=== PATIENT | female | born 1990 | race Hispanic/Latino ===

== ENCOUNTER 2020-01-02 20:25 | Emergency (ER) | payer OTHER ==
[~2020-01-02] VITALS: Ht 162.6 cm; Wt 81.6 kg
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
--- OUTSIDE RECORDS SUMMARY | 2020-01-02 21:19 | XMS REPORT | Continuity of Care Document ---
Author Author [employer] Address Unknown Phone Unavailable Care Team Providers Care Outbound Sales Professional Name Role Phone [employer] Unavailable Un available Problems Problem Status Onset Date Classification Date Reported Comments Source CTXS Active 10/19/2019 [facility] Other specified related condit ions, third trimester 09/25/2019 09/27/2019 [facility] 35 WEEKS SHORTNESS OF BREATH Active 09/25/2019 [facility] related conditions, unspecifie d, unspecified trimester 08/31/2019 09/03/2019 [facility] 30 WKS /ABDOMINAL DISCOMFORT Active 08/31/2019 [facility] Dizziness and giddiness 05/25/2019 05/27/2019 [facility] 16 WKS PREG/DIZZY, NAUSEA Acti ve 05/25/2019 [facility] Patient currently (finding) Resolved 01/27/2019 Problem 10/24/2019 [facility] Chlamydial infection (disorder) Resolved 04/03/2008 Problem 10/24/2019 [facility] Dizziness (finding) Active Problem 10/24/2019 [facility] Anemia (disorder) Resolved Problem 10/24/2019 [facility] Dnfjf-mhu-ynurp fetus (disorder) Active Problem [facility] Medications Medication Details Route Status Patient Instructions Ordering Provider Order Date Source Acetaminophen 500 MG Oral Tablet 1,000 mg = 2 tab, PO, Q6H, PRN Pain, X 10 day, # 30 tab, 0 Refill(s), Pharmacy: [facility] #[id number], 157.48, cm, 10/19/19 11:43:00 CDT, Height, 94.091, kg, 10/19/19 11:43:00 CDT, Weight Active 10/22/2019 [facility] Docusate Sodium 100 MG Oral Capsule 100 mg = 1 cap, PO, BID, # 60 cap, 0 Refill(s), Pharmacy: [facility] #[id number], 157.48, cm, 10/19/19 11:43:00 CDT, Height, 94.091, kg, 10/19/19 11:43:00 CDT, Weight Active 10/22/2019 [facility] Ascorbic Acid 120 MG / Docusate Sodium 5 0 MG / Folic Acid 1 MG / Iron Carbonyl 90 MG / Vitamin B 12 0.012 MG Oral Tablet [Ferralet 90] 1 tab, PO, Daily, # 90 tab, 0 Refill(s), Pharmacy: [facility] #[id number], 157.48, cm, 10/19/19 11:43:00 CDT, Height, 94.091, kg, 10/19/19 11:43:00 CDT, Weight Active 10/22/2019 [facility] ibuprofen 600 mg oral tablet 6 00 mg = 1 tab, PO, Q6H, PRN Pain or Fever, Take with food, X 10 day, # 40 tab, 0 Refill(s), Pharmacy: [facility] #[id number], 157.48, cm, 10/19/19 11:43:00 CDT, Height, 94.091, kg, 10/19/19 11:43:00 CDT, Weight Active 10/22/2019 [facility] tramadol hydrochloride 50 MG Oral Tablet 50 mg = 1 tab, PO, Q6H, PRN Pain, X 10 day, # 10 tab, 0 Refill(s) Active 10/22/2019 [facility] nter Motrin Notes: (Same as: Motrin ) "Do Not Crush" Take with food. No Longer Active 10/21/2019 [facility] Multivitamins oral tablet 1 tab, Route: PO, Drug Form: TAB, Dosing Weight 94.091, kg, Daily, Start date: 10/21/19 9:00:00 CDT, Duration: 30 day, Stop date: 11/19/19 9:00:00 CDT, 0 No Longer Active 10/21/2019 [facility] Benadryl Notes: (Same as: Goldsmith dryl) Inactive 10/21/2019 [facility] Benadryl Notes: (Same as: Emma dryl) No Longer Active 10/21/2019 [facility] Ibuprofen Notes: (Same as: Mot rin) "Do Not Crush" Take with food. Active 10/20/2019 [facility] Naloxone Notes: Same as Narcan No Longer Active 10/20/2019 [facility] Oxycodone Hydrochloride 5 MG Oral Tablet Notes: (Same as: Roxicodone) No Longer Active 10/20/2019 [facility] nter Ondansetron Notes: (Same as: Iesha gaming) MEDICATION WASTE Product Size: 4 mg Product Wasted: ___ mg No Longer Active 10/20/2019 [facility] Naloxone Notes: Same as Narcan No Longer Active 10/20/2019 [facility] Meperidine Notes: (Same as: Desir) "Use Precaution in Elderly, Seizure disorders, and Renal impairment" Inactive 10/20/2019 [facility] nter Benadryl Notes: (Same as: Emma dryl) Inactive 10/20/2019 [facility] Acetaminophen Notes: Max aceta minophen 4000 mg/day (4 gm/day). (Same as: Tylenol Extra Strength) Active 10/20/2019 [facility] nter Citric Acid / sodium citrate N otes: (Same As: Bicitra, Cytra-2) Sodium citrate-citric acid (500-334 mg/5 mL): 1 mL contains sodium 1 mEq/mL and bicarbonate 1 mEq/mL No Longer Active 10/20/2019 [facility] nter M-M-R II Notes: (Same as: M-M- R II) (tzqijfg-xuzug-ffqbzjn virus vaccine 0.5 ml INJ VL) WASTE: F/P - Red; E -Red GIVE PRIOR TO DISCHARGE No Longer Active 10/20/2019 [facility] nter Ibuprofen Notes: (Same as: Mot rin) "Do Not Crush" Take with food. Inactive 10/20/2019 [facility] Tramadol Notes: Not to exceed 400mg/day. (Same As: Ultram) No Longer Active 10/20/2019 [facility] propofol (ANES) Route: IV, Mani g form: INJ, ONCE, Stop date: 10/20/19 15:29:00 CDT Inactive 10/20/2019 [facility] nter Oxytocin Notes: Hazardous Drug Group 3:Reproductive risk Hazardous Drug -- Refer to safe handling procedure PPE Matrix No Longer Active 10/20/2019 [facility] Lactated Ringers IV 1,000 mL 1 ,000 mL, Rate: 100 ml/hr, Infuse over: 10 hr, Route: IV, Dosing Weight 94.091 kg, Total Volume: 1,000, Start date: 10/20/19 15:29:00 CDT, Duration: 30 day, Stop date: 11/19/19 15:28:00 CDT, 2.06, m2, 0 No Longer Active 10/20/2019 [facility] nter Bisacodyl Notes: (Same As: Dul colax, Bisco-Lax) No Longer Active 10/20/2019 [facility] Docusate Notes: (Same as: Cola ce) (Do Not Crush) No Longer Active 10/20/2019 [facility] lanolin topical cream 1 appl, Route: TOP, PRN, Drug form: OINT, PRN Other -See Comment, Start date: 10/20/19 15:29:00 CDT, Duration: 30 day, Stop date: 11/19/19 15:28:00 CDT, 0 No Longer Active 10/20/2019 [facility] nter Benzocaine / Menthol Notes: Ce pacol lozenges Dispense 1 box = 16 lozenges (Same As: Cepacol Lozenges) No Longer Active 10/20/2019 [facility] Acetaminophen Notes: Do not ex ceed 4 gm/day. (Same as: Tylenol) No Longer Active 10/20/2019 [facility] Simethicone Notes: (Same as: Rick ylicon) No Longer Active 10/20/2019 [facility] zolpidem Notes: (Same As: Ambi en) No Longer Active 10/20/2019 [facility] Ondansetron Notes: (Same as: Iesha gaming) MEDICATION WASTE Product Size: 4 mg Product Wasted: ___ mg No Longer Active 10/20/2019 [facility] ketOROLAC (ANES) IV, ONCE Inactive 10/20/2019 [facility] nter acetaminophen (ANES) Route: IV , Drug form: INJ, ONCE, Stop date: 10/20/19 14:52:00 CDT Inactive 10/20/2019 [facility] nter lidocaine (ANES) Route: EPIDUR AL, Drug form: INJ, ONCE, Stop date: 10/20/19 14:37:00 CDT Inactive 10/20/2019 [facility] nter morphine Sulfate (ANES) Route: EPIDURAL, Drug form: INJ, ONCE, Stop date: 10/20/19 14:37:00 CDT Inactive 10/20/2019 [facility] nter ondansetron (ANES) Route: IV, Drug form: INJ, ONCE, Stop date: 10/20/19 14:37:00 CDT Inactive 10/20/2019 [facility] nter sodium bicarbonate (ANES) Rout e: EPIDURAL, Drug form: INJ, ONCE, Stop date: 10/20/19 14:31:00 CDT Inactive 10/20/2019 [facility] nter famotidine (ANES) Route: IV, D rug form: INJ, ONCE, Stop date: 10/20/19 14:31:00 CDT Inactive 10/20/2019 [facility] nter midazolam (ANES) Route: IV, Dr ug form: SOLN, ONCE, Stop date: 10/20/19 14:31:00 CDT Inactive 10/20/2019 [facility] nter ketAMINE (ANES) Route: IV, Mani g form: INJ, ONCE, Stop date: 10/20/19 14:31:00 CDT Inactive 10/20/2019 [facility] nter sodium citrate (ANES) Route: P O, Drug Form: INJ, ONCE, Stop date: 10/20/19 14:25:00 CDT Inactive 10/20/2019 [facility] nter ceFAZolin (ANES) Route: IV, Dr ug form: INJ, ONCE, Stop date: 10/20/19 14:25:00 CDT Inactive 10/20/2019 [facility] nter oxytocin (ANES) 30 unit Route: IV, Drug form: SOLN, Start date: 10/20/19 13:47:00 CDT, Stop date: 10/20/19 14:47:00 CDT Inactive 10/20/2019 [facility] azithromycin (ANES) 500 mg Rou te: IV, Drug form: INJ, Start date: 10/20/19 13:19:00 CDT, Stop date: 10/20/19 14:19:00 CDT Inactive 10/20/2019 [facility] phenylephrine (ANES) 100 microgram Route: IVP, Drug form: INJ, Start date: 10/20/19 13:19:00 CDT, Stop date: 10/20/19 14:19:00 CDT Inactive 10/20/2019 [facility] Lactated Ringers Injection IV (ANES) 1000 mL Route: IV, Total Volume: 1,000, Start date: 10/20/19 13:14:00 CDT, Stop date: 10/20/19 14:14:00 CDT Inactive 10/20/2019 [facility] Penicillin G Notes: (Same as: Pfizerpen) MEDICATION WASTE Product Size: 5,000,000 unit Product Wasted: ___ unit No Longer Active 10/19/2019 [facility] Famotidine Notes: (Same as: Pe pcid) Can be dilute in 5- 10cc NS IVP: Slow IV push over at least 2 minutes. No Longer Active 10/19/2019 [facility] Misoprostol Notes: (Same as:Cy totec) Hazardous Drug Group 3:Reproductive risk Hazardous Drug -- Refer to safe handling procedure PPE Matrix Take with food No Longer Active 10/19/2019 [facility] nter Methylergonovine Notes: (Same as:Methergine) Hazardous Drug Group 3:Reproductive risk Hazardous Drug -- Refer to safe handling procedure PPE Matrix No Longer Active 10/19/2019 [facility] nter Carboprost Notes: (Same As: He mabate) No Longer Active 10/19/2019 [facility] Tranexamic Acid Notes: (Same A s: Cyklokapron) No Longer Active 10/19/2019 [facility] Penicillin G Potassium 2320887 UNT/ML In jectable Solution 5,000,000 unit, Route: IVPB, ONCALL, Dos ing Weight 94.091, kg, Start date: 10/19/19 12:00:00 CDT, Duration: 30 day, Stop date: 11/18/19 11:59:00 CDT Inactive 10/19/2019 [facility] Lidocaine Hydrochloride 10 MG/ML Injectable Solution Notes: Preservative free. (Same as: Xylocaine MPF) No Longer Active 10/19/2019 [facility] Calcium Chloride 0.0014 MEQ/ML / Potassi um Chloride 0.004 MEQ/ML / Sodium Chloride 0.103 MEQ/ML / Sodium Lactate 0.028 MEQ/ML Injectable Solution 1,000 mL, 1,000 ml/hr, Infuse Over: 1 hr , Route: IV, ONCE, Dosing Weight 94.091 kg, Start date: 10/19/19 11:01:00 CDT, Stop date: 10/19/19 11:01:00 CDT, Bolus for regional anesthesia per unit routine Inactive 10/19/2019 [facility] Lactated Ringers IV 1,000 mL 1 ,000 mL, Rate: 125 ml/hr, Infuse over: 8 hr, Route: IV, Dosing Weight 94.091 kg, Total Volume: 1,000, Start date: 10/19/19 11:01:00 CDT, Duration: 30 day, Stop date: 11/18/19 11:00:00 CDT, 2.06, m2, 0 No Longer Active 10/19/2019 [facility] nter Oxytocin Notes: Hazardous Drug Group 3:Reproductive risk Hazardous Drug -- Refer to safe handling procedure PPE Matrix No Longer Active 10/19/2019 [facility] Butorphanol Notes: (Same As: Kelly tadol) MEDICATION WASTE Product Size: 2 mg Product Wasted: ___ mg No Longer Active 10/19/2019 [facility] Ibuprofen Notes: (Same as: Mot rin) "Do Not Crush" Take with food. No Longer Active 10/19/2019 [facility] Acetaminophen 325 MG / Hydrocodone Trevor trate 5 MG Oral Tablet Notes: (Same as: Pierre 325/5) Do not ex ceed 4gm/day of acetaminophen. No Longer Active 10/19/2019 [facility] Ondansetron Notes: (Same as: Iesha gaming) MEDICATION WASTE Product Size: 4 mg Product Wasted: ___ mg No Longer Active 10/19/2019 [facility] Terbutaline Notes: DO NOT US E IN POLISHER APPRENTICE AREA (Same As: Brethine) No Longer Active 10/19/2019 [facility] Isolyte S PH-7.4 (Bolus) IV 1, 000 mL, Route: IV, ONCE, Dosing Weight 82.273 kg, Start date: 05/25/19 17:02:00 DIRECT MARKETING SPECIALIST, Stop date: 05/25/19 17:02:00 DIRECT MARKETING SPECIALIST Inactive 05/25/2019 [facility] Allergies, Adverse Reactions, Alerts No Known Medication Allergies Immunizations No Data Provided for This Section Results Order Name Results Value Reference Range Date Interpretation Comments Source HEMATOLOGY WBC 12.4 3.7 - 10.4 10/22/2019 [facility] HEMATOLOGY RBC 3.38 4.20 - 5.40 10/22/2019 [facility] HEMATOLOGY Hgb 8.6 12.0 - 16.0 10/22/2019 [facility] HEMATOLOGY Hct 26.1 36.0 - 48.0 10/22/2019 [facility] HEMATOLOGY MCV 77.4 80.0 - 98.0 10/22/2019 [facility] HEMATOLOGY MCH 25.5 27.0 - 31.0 10/22/2019 [facility] HEMATOLOGY MCHC 32.9 32.0 - 36.0 10/22/2019 [facility] HEMATOLOGY RDW 19.1 11.5 - 14.5 10/22/2019 [facility] HEMATOLOGY Platelet 193 133 - 450 10/22/2019 [facility] HEMATOLOGY MPV 9.7 7.4 - 10.4 10/22/2019 [facility] HEMATOLOGY Segs 73.5 45.0 - 75.0 10/22/2019 [facility] HEMATOLOGY Lymphocytes 15.9 20.0 - 40.0 10/22/2019 [facility] HEMATOLOGY Monocytes 9.1 2.0 - 12.0 10/22/2019 [facility] HEMATOLOGY Eosinophils 1.2 0.0 - 4.0 10/22/2019 [facility] HEMATOLOGY Basophils 0.3 0.0 - 1.0 10/22/2019 [facility] HEMATOLOGY Neutrophils # 9.1 1.5 - 8.1 10/22/2019 [facility] HEMATOLOGY Lymphocytes # 2.0 1.0 - 5.5 10/22/2019 [facility] HEMATOLOGY Monocytes # 1.1 0.0 - 0.8 10/22/2019 [facility] HEMATOLOGY Eosinophils # 0.1 0.0 - 0.5 10/22/2019 [facility] HEMATOLOGY Microcyte 1+ *ABN* (10/21/19 9:51 PM) None Seen 10/22/2019 [facility] BLOOD BANK RESULTS RBC product Product available (10/21/19 7:06 AM) 10/21/2019 [facility] BLOOD BANK RESULTS RBC product Product available (10/21/19 7:03 AM) 10/21/2019 [facility] HEMATOLOGY Hgb 6.6 12.0 - 16.0 10/21/2019 Result Comment: Critical Result(s) ballesteros d to Clark Cárdenas at 10/21/2019 06:41 by ET. Read back OK. [facility] HEMATOLOGY Hct 20.8 36.0 - 48.0 10/21/2019 [facility] BLOOD BANK RESULTS ABO/Rh O POS 10/19/2019 [facility] BLOOD BANK RESULTS Antibody Scrn Negative (10/19/19 11:06 AM) 10/19/2019 [facility] HEMATOLOGY WBC 12.9 3.7 - 10.4 10/19/2019 [facility] HEMATOLOGY RBC 4.31 4.20 - 5.40 10/19/2019 [facility] HEMATOLOGY Hgb 10.3 12.0 - 16.0 10/19/2019 [facility] HEMATOLOGY Hct 31.9 36.0 - 48.0 10/19/2019 [facility] HEMATOLOGY MCV 74.0 80.0 - 98.0 10/19/2019 [facility] HEMATOLOGY MCH 23.8 27.0 - 31.0 10/19/2019 [facility] HEMATOLOGY MCHC 32.1 32.0 - 36.0 10/19/2019 [facility] HEMATOLOGY RDW 18.0 11.5 - 14.5 10/19/2019 [facility] HEMATOLOGY Platelet 224 133 - 450 10/19/2019 [facility] HEMATOLOGY MPV 10.5 7.4 - 10.4 10/19/2019 [facility] HEMATOLOGY Segs 67.7 45.0 - 75.0 10/19/2019 [facility] HEMATOLOGY Lymphocytes 20.9 20.0 - 40.0 10/19/2019 [facility] HEMATOLOGY Monocytes 10.6 2.0 - 12.0 10/19/2019 [facility] HEMATOLOGY Eosinophils 0.6 0.0 - 4.0 10/19/2019 [facility] HEMATOLOGY Basophils 0.2 0.0 - 1.0 10/19/2019 [facility] HEMATOLOGY Neutrophils # 8.7 1.5 - 8.1 10/19/2019 [facility] HEMATOLOGY Lymphocytes # 2.7 1.0 - 5.5 10/19/2019 [facility] HEMATOLOGY Monocytes # 1.4 0.0 - 0.8 10/19/2019 [facility] HEMATOLOGY Eosinophils # 0.1 0.0 - 0.5 10/19/2019 [facility] HEMATOLOGY Microcyte 1+ *ABN* (10/19/19 11:06 AM) None Seen 10/19/2019 [facility] IMMUNOLOGY Treponemal Ab Non-R eactive *NA* (10/19/19 11:06 AM) Non 10/19/2019 [facility] IMMUNOLOGY Hep Bs Ag Negat malissa *NA* (10/19/19 11:06 AM) Negative 10/19/2019 [facility] IMMUNOLOGY HIV. Negat malissa *NA* (10/19/19 11:06 AM) Negative 10/19/2019 [facility] IMMUNOLOGY Coronavirus (COVID-19) NA A Not Detected (10/19/19 10:08 AM) Not Detected 10/19/2019 [facility] CHEM PANEL Glucose Lvl 93 70 - 99 05/25/2019 [facility] CHEM PANEL BUN 6 7 - 22 05/25/2019 [facility] CHEM PANEL Creatinine Lvl 0.54 0.50 - 1.40 05/25/2019 [facility] CHEM PANEL Sodium Lvl 138 135 - 145 05/25/2019 [facility] CHEM PANEL Potassium Lvl 3.5 3.5 - 5.1 05/25/2019 [facility] CHEM PANEL Chloride Lvl 107 95 - 109 05/25/2019 [facility] CHEM PANEL CO2 24 24 - 32 05/25/2019 [facility] CHEM PANEL Calcium Lvl 9.0 8.5 - 10.5 05/25/2019 [facility] CHEM PANEL AGAP 10.5 10.0 - 20.0 05/25/2019 [facility] CHEM PANEL eGFR 128 05/25/2019 Result Comment: The eGFR is calculated using the CKD-EPI formula. In most young, healthy individuals the eGFR will be >90 mL/min/1.73m2. The eGFR declines with age. An eGFR of 60-89 may be normal in some populations, particularly the elderly, for whom the CKD-EPI formula has not been extensively validated. Use of the eGFR is not recommended in the following populations:

Individuals with unstable creatinine concentrations, including patients and those with serious co-morbid conditions.

Patients with extremes in muscle mass or diet.

The data above are obtained from the National Kidney Disease Education Program (NKDEP) which additionally recommends that when the eGFR is used in patients with extremes of body mass index for purposes of drug dosing, the eGFR should be multiplied by the estimated BMI. [facility] ENDOCRINOLOGY hCG Tot 8541 05/25/2019 [facility] HEMATOLOGY WBC X 10x3 10.8 3.7 - 10.4 05/25/2019 [facility] HEMATOLOGY RBC X 10x6 4.05 4.20 - 5.40 05/25/2019 [facility] HEMATOLOGY Hgb 11.3 12.0 - 16.0 05/25/2019 [facility] HEMATOLOGY Hct 34.4 36.0 - 48.0 05/25/2019 [facility] HEMATOLOGY MCV 84.8 80.0 - 98.0 05/25/2019 [facility] HEMATOLOGY MCH 27.8 27.0 - 31.0 05/25/2019 [facility] HEMATOLOGY MCHC 32.8 32.0 - 36.0 05/25/2019 [facility] HEMATOLOGY RDW 15.9 11.5 - 14.5 05/25/2019 [facility] HEMATOLOGY Platelet 306 133 - 450 05/25/2019 [facility] HEMATOLOGY MPV 8.6 7.4 - 10.4 05/25/2019 [facility] HEMATOLOGY Segs 64.2 45.0 - 75.0 05/25/2019 [facility] HEMATOLOGY Lymphocytes 21.0 20.0 - 40.0 05/25/2019 [facility] HEMATOLOGY Monocytes 12.8 2.0 - 12.0 05/25/2019 [facility] HEMATOLOGY Eosinophils 1.5 0.0 - 4.0 05/25/2019 [facility] HEMATOLOGY Basophils 0.5 0.0 - 1.0 05/25/2019 [facility] HEMATOLOGY Neutrophils # 6.9 1.5 - 8.1 05/25/2019 [facility] HEMATOLOGY Lymphocytes # 2.3 1.0 - 5.5 05/25/2019 [facility] HEMATOLOGY Monocytes # 1.4 0.0 - 0.8 05/25/2019 [facility] HEMATOLOGY Eosinophils # 0.2 0.0 - 0.5 05/25/2019 [facility] HEMATOLOGY Basophils # 0.1 0.0 - 0.2 05/25/2019 [facility] URINE AND STOOL UA Color Yellow *NA* (05/25/19 5:13 PM) Yellow 05/25/2019 [facility] URINE AND STOOL UA Turbidity Slight *ABN* (05/25/19 5:13 PM) Clear 05/25/2019 [facility] URINE AND STOOL UA Spec Grav 1.024 <=1.030 05/25/2019 [facility] URINE AND STOOL UA pH 6.0 5.0 - 8.0 05/25/2019 [facility] URINE AND STOOL UA Protein Negative (05/25/19 5:13 PM) Negative 05/25/2019 [facility] URINE AND STOOL UA Glucose Negative *NA* (05/25/19 5:13 PM) Negative 05/25/2019 [facility] URINE AND STOOL UA Ketones Trace *ABN* (05/25/19 5:13 PM) Negative 05/25/2019 [facility] URINE AND STOOL UA Bili Negative *NA* (05/25/19 5:13 PM) Negative 05/25/2019 [facility] URINE AND STOOL UA Blood Negative (05/25/19 5:13 PM) Negative 05/25/2019 [facility] URINE AND STOOL UA Urobilinogen <1.0 0.1 - 1.0 05/25/2019 [facility] URINE AND STOOL UA Nitrite Negative (05/25/19 5:13 PM) Negative 05/25/2019 [facility] URINE AND STOOL UA Leuk Est Negative (05/25/19 5:13 PM) Negative 05/25/2019 [facility] URINE AND STOOL UA Sq Epi Many /LPF Few /LPF 05/25/2019 [facility] URINE AND STOOL UA WBC 3 0 - 5 05/25/2019 [facility] URINE AND STOOL UA RBC 2 0 - 2 05/25/2019 [facility] URINE AND STOOL UA Bacteria Occasional /HPF None Seen /HPF 05/25/2019 [facility] URINE AND STOOL UA Mucus Few /LPF None Seen /LPF 05/25/2019 [facility] Pathology Reports No Data Provided for This Section Diagnostic Reports No Data Provided for This Section Consultation Notes No Data Provided for This Section Discharge Summaries No Data Provided for This Section History and Physicals No Data Provided for This Section Vital Signs Vital Sign Value Date Comments Source Temperature Oral (F) 98.2 F 10/22/2019 [facility] Heart Rate 85 10/22/2019 [facility] Respitory Rate 18 10/22/2019 [facility] Systolic (mm Hg) 102 10/22/2019 [facility] Diastolic (mm Hg) 67 10/22/2019 [facility] Temperature Oral (F) 98.5 F 10/22/2019 [facility] Heart Rate 80 10/22/2019 [facility] Respitory Rate 18 10/22/2019 [facility] Systolic (mm Hg) 120 10/22/2019 [facility] Diastolic (mm Hg) 74 10/22/2019 [facility] Temperature Oral (F) 97.9 F 10/21/2019 [facility] Respitory Rate 19 10/21/2019 [facility] Systolic (mm Hg) 100 10/21/2019 [facility] Diastolic (mm Hg) 67 10/21/2019 [facility] Heart Rate 79 10/21/2019 [facility] Temperature Oral (F) 98.4 F 10/21/2019 [facility] Heart Rate 93 10/21/2019 [facility] Respitory Rate 18 10/21/2019 [facility] Systolic (mm Hg) 94 10/21/2019 [facility] Diastolic (mm Hg) 57 10/21/2019 [facility] Systolic (mm Hg) 89 10/20/2019 [facility] Diastolic (mm Hg) 48 10/20/2019 [facility] Respitory Rate 18 10/20/2019 [facility] Systolic (mm Hg) 90 10/20/2019 [facility] Diastolic (mm Hg) 45 10/20/2019 [facility] Temperature Oral (F) 98.0 F 10/20/2019 [facility] Respitory Rate 16 10/20/2019 [facility] Temperature Oral (F) 98.4 F 10/20/2019 [facility] Height 157.48 cm 10/19/2019 [facility] Weight 94.091 10/19/2019 [facility] BMI Calculated 37.94 10/19/2019 [facility] Height 157.48 cm 10/19/2019 [facility] BMI Calculated 37.94 10/19/2019 [facility] Weight 94.091 10/19/2019 [facility] Heart Rate 109 10/19/2019 [facility] Systolic (mm Hg) 101 09/26/2019 [facility] Diastolic (mm Hg) 57 09/26/2019 [facility] Systolic (mm Hg) 114 09/26/2019 [facility] Diastolic (mm Hg) 68 09/26/2019 [facility] Height 162.56 cm 09/26/2019 [facility] BMI Calculated 34.4 09/26/2019 [facility] Weight 90.909 09/26/2019 [facility] Systolic (mm Hg) 114 09/26/2019 [facility] Diastolic (mm Hg) 68 09/26/2019 [facility] Heart Rate 102 09/26/2019 [facility] Respitory Rate 18 09/26/2019 [facility] Temperature Oral (F) 98.7 F 09/26/2019 [facility] Heart Rate 93 09/26/2019 [facility] Respitory Rate 16 09/26/2019 [facility] Temperature Oral (F) 98.3 F 09/26/2019 [facility] Systolic (mm Hg) 109 09/01/2019 [facility] Diastolic (mm Hg) 63 09/01/2019 [facility] Height 157.48 cm 09/01/2019 [facility] BMI Calculated 36.66 09/01/2019 [facility] Weight 90.909 09/01/2019 [facility] Systolic (mm Hg) 119 09/01/2019 [facility] Diastolic (mm Hg) 75 09/01/2019 [facility] Heart Rate 117 09/01/2019 [facility] Respitory Rate 18 09/01/2019 [facility] Temperature Oral (F) 97.1 F 09/01/2019 [facility] Systolic (mm Hg) 118 09/01/2019 [facility] Diastolic (mm Hg) 78 09/01/2019 [facility] Heart Rate 108 09/01/2019 [facility] Respitory Rate 20 09/01/2019 [facility] Temperature Oral (F) 98.4 F 09/01/2019 [facility] Heart Rate 86 05/26/2019 [facility] Systolic (mm Hg) 113 05/26/2019 [facility] Diastolic (mm Hg) 74 05/26/2019 [facility] Respitory Rate 18 05/26/2019 [facility] Heart Rate 93 05/26/2019 [facility] Systolic (mm Hg) 121 05/26/2019 [facility] Diastolic (mm Hg) 77 05/26/2019 [facility] Heart Rate 89 05/26/2019 [facility] Systolic (mm Hg) 104 05/26/2019 [facility] Diastolic (mm Hg) 69 05/26/2019 [facility] Respitory Rate 20 05/25/2019 [facility] Temperature Oral (F) 97.9 F 05/25/2019 [facility] Height 157.48 cm 05/25/2019 [facility] BMI Calculated 33.17 05/25/2019 [facility] Weight 82.273 05/25/2019 [facility] Encounters Location Location Details Encounter Type Encounter Number Reason For Visit Attending Provider ADM Date DC Date Status Source [facility] Emergency [id number] Elsa Wolfeo 05/25/2019 05/26/2019 [facility] Emergency [id number] Bridgett Delarosa 09/01/2019 09/01/2019 [facility] Emergency [id number] Tao Heredia 09/25/2019 09/26/2019 [facility] Inpatient [id number] Bridgett Washington 10/19/2019 10/22/2019 [facility] Procedures Procedure Code Date Perfomer Comments Source Dilation and curettage [id number] [facility] Assessment and Plan Assessment and Plan Date Source Extracted from:Title: R1 Progress Note Author: Claire Pederson MD Date: 10/22/19 Progress Note R1 Progress Note Subjective: Pt doing well with no complaints. Pain well controlled. Ambulating and voiding freely. Lochia wnl.Flatus + Objective: Vitals Tmp(F) Pulse BP RR SpO2 FIO2 10/21 00:00 98.5 80 120/74 1 8 99 --- 10/20 18:30 97.9 79 100/67 1 9 98 --- 07/20 17:15 98.1 70 101/70 1 8 96 --- 10/20 16:15 97.5 79 94/61 19 98 --- 10/20 15:15 97.5 84 99/66 18 99 --- 24 Hr Tmax: 98.5F (36.94c) at 10/21 00:0 0 Vital Signs are the last 5 in the past 48 hours. Gen: NAD Resp: Non-labored breathing Abd: soft/ fundus firm below umbilicus/ nontender/ nondistended Incision: c/d/i Peripad: scant lochia A/P: 28yo s/p pLTSCS and BTL on 10/20/19 2/2 arrest of dilation, doing well 1. POD#2 - AFVSS - Hgb 10.3 > QBL 1500 > 6.6> 2U pRBCs >8.6 - GI: tolerating regular diet - : voiding freely - Pain well controlled w/ PO meds 2. care - Rh+, RI - s/p tdap - Male infant, desires circumcision - BCM: s/p BTL 3. PPH - 2/2 atony - Hgb 10.3 > QBL 1500 > 6.6> 2U pRBCs >8 .6 - no s/sx of anemia Dispo: Continue Routine care. Anticipate dc today Claire Pederson MD [facility] [employer]ICE PGY1 Extracted from:Title: Clinical Document Author: Bridgett Delarosa MD Date: 10/19/19 History of Present Illness R2 [employer]ENTICE Labor Admission H&P ROSALIA: 11/03/19 EGA: 37w6d CC: contractions HPI:28 yo at 37w6d by LMP c/w 8wk sono with suspected macrosomia, obesity, who presents today complaining of 1 day history of contractions. Reports contractions q 5 minutes. Denies VB, LOF. Denies headaches, visual changes, RUQ pain. Denies chest pain, shortness of breath. Reports good FM. 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 Medications: (Selected) Inpatient Medications Ordered Lactated Ringers IV 1,000 mL: 125 ml/hr, IV, Stop: 11/18/19 11:00:00 CDT acetaminophen-hydrocodone 325 mg-5 mg oral tablet: 1 tab, PO, Q4H, PRN: Pain Score 4-6 acetaminophen-hydrocodone 325 mg-5 mg oral tablet: 2 tab, PO, Q4H, PRN: Pain Score 7-10 butorphanol: 1 mg, 0.5 mL, IVP, Q2H, PRN: Pain Score 4-6 butorphanol: 2 mg, 1 mL, IVP, Q2H, PRN: Pain Score 7-10 carboprost: 250 microgram, 1 mL, IM, ONCALL famotidine: 20 mg, 2 mL, IVP, ONCALL ibuprofen: 600 mg, 1 tab, PO, Q6H, PRN: Other -See Comment lidocaine 1% injectable solution: 0.25 mL, INTRADERM, PRN, PRN: Other -See Comment lidocaine 1%: 20 mL, PERCUT, PRN, PRN: Other -See Comment methylergonovine: 0.2 mg, 1 mL, IM, ONCALL misoprostol: 1,000 microgram, 5 tab, RI, ONCALL ondansetron: 4 mg, 2 mL, IVP, Q8H, PRN: Nausea and Vomiting oxytocin 30 units in NS 500ml (Titrate) IV 30 unit: Titrate, IV, Stop: 10/21/19 11:00:00 CDT oxytocin 30 units in NS 500ml (Titrate) IV 30 unit: Titrate, IV, Stop: 10/21/19 11:00:00 CDT penicillin G potassium + Sodium Chloride 0.9% IV 50 mL: 3 MilUnit, 100 ml/hr, IVPB, ABXQ4H terbutaline: 0.25 mg, 0.25 mL, SUB-Q, PRN, PRN: Other -See Comment tranexamic acid: 1 gm, 10 mL, IVPB, ONCALL. Past Medical/ Family/ Social History Medical history: Resolved ([id number]): Onset on 01/09/2013 at 22 years. Resolved in 2013 at 22 years. ([id number]): Onset on 04/24/2012 at 21 years. Resolved on 02/05/2013 at 22 years. ([id number]): Onset on 04/25/2009 at 18 years. Resolved on 02/07/2010 at 19 years. ([id number]): Onset on 11/24/2007 at 16 years. Resolved on 08/30/2008 at 17 years. Anemia ([id number]): Resolved. Chlamydia ([id number]): Resolved in 2008 at 18 years.. Surgical history: Dilation and curettage ([id number]).. Family history: Hypertension Mother Type 2 diabetes mellitus Father . Social history: Social and Psychosocial Habits Alcohol 08/31/2019 Use: Never 10/19/2019 Use: Never Substance Abuse 10/19/2019 Use: None Tobacco 09/25/2019 Use: Never smoker Exposure to Tobacco Smoke None Cigarette Smoking Last 365 Days No Reg Smoking Cessation Counseling No 10/19/2019 Use: Never smoker Ready to change: No Concerns about tobacco use in household: No Exposure to Tobacco Smoke None Cigarette Smoking Last 365 Days No Reg Smoking Cessation Counseling No 10/19/2019 Use: Never smoker Exposure to Tobacco Smoke None Cigarette Smoking Last 365 Days No Reg Smoking Cessation Counseling No . Problem list: Active Problems (3) Dizziness growth acceleration . Physical Examination Vital Signs ED-Vital Signs 10/19/2019 11:38 Respiratory Rate 18 BRMIN Normal SpO2 percent 99 % Normal Systolic Blood Pressure 101 mmHg Normal Diastolic Blood Pressure 66 mmHg Normal 10/19/2019 10:00 SpO2 percent 99 % Normal 10/19/2019 09:55 Temperature Oral 98.9 DegF Normal Peripheral Pulse Rate 109 bpm HI Respiratory Rate 20 BRMIN Normal SpO2 percent 99 % Normal Systolic Blood Pressure 118 mmHg Normal Diastolic Blood Pressure 80 mmHg Normal . Measurements 10/19/2019 11:43 Heparin Dosing Weight (kg) 67.70 10/19/2019 11:43 Height 157.48 cm Height Collection Method Stated Weight 94.091 kg Dosing Weight Difference Percent 0 % Dosing Weight Collection Method Estimated Pre- Weight 72.727 kg Body Surface Area 2.0288 m2 Body Mass Index 37.94 m2 10/19/2019 10:02 Heparin Dosing Weight (kg) 67.70 10/19/2019 09:55 Height 157.48 cm Height Collection Method Stated Weight 94.091 kg Dosing Weight Difference Percent 3.5 % Dosing Weight Collection Method Estimated Body Surface Area 2.0288 m2 Body Mass Index 37.94 m2 . Gen: NAD CV: RRR Pulm: CTAB Abdomen: soft/ gravid/ nontender Ext: no c/c/e SSE: deferred SVE: /-3 BSUS: cephalic, posterior, 4131g, MVP 5.2cm FHTs: baseline 150s, moderate variability, + accels, -decels [place]: q 2minutes Impression and Plan A/P: 28 yo at 37w6d by LMP c/w 9wk sono with suspected macrosomia, who presents today complaining of 1 day history of contractions, found to be in latent labor 1. Labor: SVE /-3, plan to augment w ith pitocin 2x2 2. IUP: FHTs Cat I 3. Suspected macrosomia - BSUS on 10/18 of 4131g - prior US on 10/06 of 3087g, 74%ile - early 1hr 81, routine 1hr 171, 3hr wnl (82/166/133/88) - 30lb weight gain this - counseled extensively on risk of shoul silva dystocia, including risk of injury to mother and fetus, nerve injury, hemorrhage, . 4. Obesity: BMI 38, see above 5. PPH risk: medium 6. Br/ wants epidural / BCM: BTL / accep ts blood transfusions 7. GBS unknown, will treat due to being GBS positive in prior pregnancies, 3THIV neg 8. Cephalic, 4134 g Dispo: admit to L&D for augmentation of latent labor D/w Dr. Mayes and Dr [place] Baum MD [employer]ER APPRENTICE | PGY-2 MFM Attending Note: I have seen and examined the patient. I agree with the note as documented. Bridgett Delarosa MD Maternal Medicine 10/22/2019 [facility] Extracted from:Title: Post-Op Author: Alba Yip DO Date: 10/20/19 Post Op Check R1 PostopCheck Subjective: Pt doing well with no complaints. Pain well controlled on PO meds. Buckley intact, pt has not ambulated. Whitney regular diet without N/V. neg Flatus, Lochia wnl. Objective: Vitals Tmp(F) Pulse BP RR SpO2 FIO2 10/19 17:46 ---- 88 89/48 18 96 --- 10/19 16:15 98.0 88 90/45 16 96 --- 10/19 15:45 ---- --- 88/49 - - --- --- 10/19 15:30 ---- --- 92/49 - - 98 --- 10/19 15:15 ---- 105 94/49 1 6 100 --- 24 Hr Tmax: 99.6F (37.56c) at 10/18 21:0 0 Vital Signs are the last 5 in the past 48 hours. Gen: NAD Resp: non-labored Abd: soft/non-tender/fundus firm at umbilicus/ pressuree dressing in place : lochia scant Ext: 1+ edema, SCDs in place Urine Output: 150cc/hr A/P: 28yo s/p pLTCS and BTL on 10/20/19 secondary to arrest of labor,and doing well. 1. POD#0 - AFVSS - Hgb 10.3 > QBL 1500 > AM pending - GI: tolerating clear liquid diet - : UOP adequate - DVT: SCDs and ambulate QID - Pain: controlled on PO medications 2. care - Rh+, RI - s/p tdap - Male infant - BCM: BTL Dispo: D/C buckley and advance to regular diet. Continue routine post op care. Alba Yip DO Resident Physician | PGY-1 Department of Obstetrics, Gynecology and Reproductive Sciences [facility] [place] 10/21/2019 [facility] Plan of Care No Data Provided for This Section Social History Social History Date Source Social History TypeResponse Alcohol Never Substance Abuse Use: None. Smoking Status Never smoker; Exposure to Tobacco Smoke None; Cigarette Smoking Last 365 Days No; Reg Smoking Cessation Counseling No entered on: 10/19/19 10/19/2019 [facility] Family History No Data Provided for This Section Advance Directives No Data Provided for This Section Functional Status No Data Provided for This Section
--- OUTSIDE RECORDS SUMMARY | 2020-01-02 21:19 | XMS REPORT | Continuity of Care Document ---
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 Test Item Value Reference Range Interpretation Comments UA pH (test code = UA pH) 6.0 1 5.0-8.0 [facility] XBJGT2210-28-35 23:13:00Negative (05/25/19 5:13 PM) [facility] NCPBP2348-41-69 23:13:00Negative *NA*(05/25/19 5:13 PM) [facility] MXFLA9958-50-61 23:13:00Trace *ABN*(05/25/19 5:13 PM) [facility] MHDVT9937-44-72 23:13:00Negative *NA*(05/25/19 5:13 PM) [facility] INXSS3953-65-98 23:13:00Negative (05/25/19 5:13 PM) [facility] IOROY6451-13-56 23:13:00<1.0[facility] JXVHE5054-42-53 23:13:00Negative (05/25/19 5:13 PM)[facility] LGHNH7580-94-15 23:13:00Negative (05/25/19 5:13 PM)[facility] XJXDZ8782-15-63 23:13:003[facility] LYAMT5860-69-91 23:13:002 [facility]- US PREG UT ECGBIDCKRVML5290-58-04 01:23:00 Name: JIMENEZ ROSENBAUM [facility] : 1990 Age/S: 28 / F [address] [facility] Unit #: [id number] Loc: [place] [address] Phys: Sheng Browning MD Acct: [id number] Di s Date: Status: REG ER PHONE #: Exam Date: 03/16/2019 0103 FAX #: [phone] Reason: abd pain EXAMS: CPT CODE: [id number] US PREG UT TR ANSVAGINAL 94750 LOCATION: Q15 HISTORY: 28-year-old female who is and presents with nausea, v omiting, and diarrhea. COMMENT: Sonographic imaging of this patient's pelvis was obtained transabdominally and endovaginally u tilizing grayscale, color-flow, and Doppler waveform imaging modalities. FINDINGS: The uterus is gravid and measures 14.4 x 4.4 x 8.6 cm. The gestational sac contains a yolk sac and pole. The cr own-rump length of 4 mm corresponds to a gestational age of 6 weeks 1 day. The gestational sac diameter of 2.1 cm corresponds to a gestational age of 7 weeks. heart tones are seen at 170 bpm. A small subchronic bleed is seen measuring 10 x 5 x 7 mm. The ovarie s are unremarkable. The right ovary measures 34 x 18 x 25 mm and the left ovary measures 30 x 21 x 25 mm Both ovaries exhibit low-resistance arterial blood flow and venous blood flow on the Doppler study. There are no adnexal masses present and no fluid is seen in the pelvic cul-de-sac. IMPRESSION: A live, 6 week 4 day intrauterine is seen. Estimated due date is November 05, 2019. A small subchronic bleed is seen. The ovaries are unremarkable. at 0123 Reported and signed by: Lino Carrillo M.D. PAGE 1 Signed Report (CONTINUED) Name: JIMENEZ ROSENBAUM [facility] : 1990 Age/S: 28 / F [address] [place] [address] Unit #: [id number] Loc: [place] [address] Phys: Kehinde Browning MD Acct: [id number] Dis Date: Status: REG ER PHONE #: [phone] Exam Date: 03/16/2019102 FAX #: [phone] Reason: abd pain EXAMS: CPT CODE: [id number] US PREG UT TRANSVAGINAL 98905 <Continued> CC: Kehinde Browning MD Technologist: Jimena Mederos [facility] Date/Time: 03/16/2019 (012) [email or web address] Orig Print D/T: S: 03/16/2019 (0126) Probe: [id number] PAGE 2 Signed Report - US PREG 1ST [id number] 01:23:00 Name: JIMENEZ ROSENBAUM [facility] : 1990 Age/S: 28 / F [address] [facility] Unit #: [id number] Loc: [place] [address] Phys: Sheng Browning MD Acct: [id number] Di s Date: Status: REG ER PHONE #: Exam Date: 03/16/2019102 FAX #: Reason: abd pain EXAMS: CPT CODE: [id number] US PREG 1ST T RIMTR 82884 LOCATION: Q15 HISTORY: 28-year-old female who is and presents with nausea, v omiting, and diarrhea. COMMENT: Sonographic imaging of this patient's pelvis was obtained transabdominally and endovaginally u tilizing grayscale, color-flow, and Doppler waveform imaging modalities. FINDINGS: The uterus is gravid and measures 14.4 x 4.4 x 8.6 cm. The gestational sac contains a yolk sac and pole. The cr own-rump length of 4 mm corresponds to a gestational age of 6 weeks 1 day. The gestational sac diameter of 2.1 cm corresponds to a gestational age of 7 weeks. heart tones are seen at 170 bpm. A small subchronic bleed is seen measuring 10 x 5 x 7 mm. The ovarie s are unremarkable. The right ovary measures 34 x 18 x 25 mm and the left ovary measures 30 x 21 x 25 mm Both ovaries exhibit low-resistance arterial blood flow and venous blood flow on the Doppler study. There are no adnexal masses present and no fluid is seen in the pelvic cul-de-sac. IMPRESSION: A live, 6 week 4 day intrauterine is seen. Estimated due date is November 05, 2019. A small subchronic bleed is seen. The ovaries are unremarkable. at 0123 Reported and signed by: Lino Carrillo M.D. PAGE 1 Signed Report (CONTINUED) Name: JIMENEZ ROSENBAUM [facility] : 1990 Age/S: 28 / F [address] [facility] Unit #: [id number] Loc: [facility] [place] [address] Phys: Kehinde Browning MD Acct: [id number] Dis Date: Status: REG ER PHONE #: [phone] Exam Date: 03/16/2019 0103 FAX #: [phone] Reason: abd pain EXAMS: CPT CODE: [id number] US PREG 1ST TRIMTR 85644 <Continued> CC: Kehinde Browning MD Technologist: Jimena Mederos [facility] Trnsc[facility] Date/Time: 03/16/2019 (012) [email or web address] Orig Print D/T: S: 03/16/2019 (012) Probe: PAGE 2 Signed Report URINALYSIS [id number] 23:31:00* Test Item Value Reference Range Interpretation Comments UA COLOR (test code = COLU) YELLOW YELLOW UA APPEARANCE (test code = APPU) CLEAR CLEAR UA GLUCOSE DIPSTICK (test code = DGLUU) norm mg/dL NEGATIVE UA BILIRUBIN DIPSTICK (test code = BILU) NEGATIVE mg/dL NEGATIVE UA KETONE DIPSTICK (test code = KETU) 150 (4+) mg/dL NEGATIVE A UA SPECIFIC GRAVITY (test code = SGU) 1.020 1.001-1.035 UA BLOOD DIPSTICK (test code = SHAWNA) 10 (Trace) Rajesh/uL NEGATIVE A UA PH DIPSTICK (test code = MALCOLM) 6.0 5.0-8.0 UA PROTEIN DIPSTICK (test code = PROU) 15 (TRACE) mg/dL Neg-15 A UA UROBILINIOGEN DIPSTICK (test code = URO) norm mg/dL 0.0-0.2 UA NITRITE DIPSTICK (test code = PETER) NEGATIVE NEGATIVE UA LEUKOCYTE ESTERASE DIPSTICK (test code = LEUU) neg uL NEGA TIVE UA WBC (test code = WBCU) 0-5 per HPF 0-5 UA RBC (test code = RBCU) 0-2 per HPF 0-5 UA EPITHELIAL CELLS (test code = EPIU) Many (>10/hpf) per HPF Few A UA BACTERIA (test code = BACU) MODERATE per HPF NONE A Urine Source? Clean CatchURINALYSIS [id number] 23:28:00* Test Item Value Reference Range Interpretation Comments UA COLOR (test code = COLU) YELLOW YELLOW UA APPEARANCE (test code = APPU) CLEAR CLEAR UA GLUCOSE DIPSTICK (test code = DGLUU) norm mg/dL NEGATIVE UA BILIRUBIN DIPSTICK (test code = BILU) NEGATIVE mg/dL NEGATIVE UA KETONE DIPSTICK (test code = KETU) 150 (4+) mg/dL NEGATIVE A UA SPECIFIC GRAVITY (test code = SGU) 1.020 1.001-1.035 UA BLOOD DIPSTICK (test code = SHAWNA) 10 (Trace) Rajesh/uL NEGATIVE A UA PH DIPSTICK (test code = MALCOLM) 6.0 5.0-8.0 UA PROTEIN DIPSTICK (test code = PROU) 15 (TRACE) mg/dL Neg-15 A UA UROBILINIOGEN DIPSTICK (test code = URO) norm mg/dL 0.0-0.2 UA NITRITE DIPSTICK (test code = PETER) NEGATIVE NEGATIVE UA LEUKOCYTE ESTERASE DIPSTICK (test code = LEUU) neg uL NEGA TIVE UA WBC (test code = WBCU) per HPF 0-5 UA RBC (test code = RBCU) per HPF 0-5 UA EPITHELIAL CELLS (test code = EPIU) per HPF Few UA BACTERIA (test code = BACU) per HPF NONE Urine Source? Clean CatchURINALYSIS [id number] 01:27:00* Test Item Value Reference Range Interpretation Comments UA COLOR (test code = COLU) COLORLESS YELLOW A UA APPEARANCE (test code = APPU) CLEAR CLEAR UA GLUCOSE DIPSTICK (test code = DGLUU) NEGATIVE mg/dL NEGATIVE UA BILIRUBIN DIPSTICK (test code = BILU) NEGATIVE mg/dL NEGATIVE UA KETONE DIPSTICK (test code = KETU) 10 (1+) mg/dL NEGATIVE A UA SPECIFIC GRAVITY (test code = SGU) 1.008 1.001-1.035 UA BLOOD DIPSTICK (test code = SHAWNA) Negative mg/dL NEGATIVE UA PH DIPSTICK (test code = MALCOLM) 7.0 5.0-8.0 UA PROTEIN DIPSTICK (test code = PROU) NEGATIVE mg/dL NEGATIVE UA UROBILINIOGEN DIPSTICK (test code = URO) Normal mg/dL NEGATIVE UA NITRITE DIPSTICK (test code = PETER) NEGATIVE NEGATIVE UA LEUKOCYTE ESTERASE W REFLEX (test code = LEUUR) NEGATIVE Justin/uL NEGATIVE UA WBC (test code = WBCU) 0-5 per HPF 0-5 UA RBC (test code = RBCU) 0-2 #/HPF 0-5 UA EPITHELIAL CELLS (test code = EPIU) FEW per HPF FEW UA BACTERIA (test code = BACU) FEW #/HPF NONE A UA MUCUS (test code = MUCU) FEW #/LPF FEW Urine Source? Clean Catch- US PREG 1ST [id number] 00:34:00 Name: ILSAJIMENEZ [facility] : 1990 Age/S: 28 / F [address] Unit #: [id number] Loc: [place] [address] Phys: Aarti Aguilera NP Acct: [id number] Di s Date: Status: REG ER PHONE #: [phone] Exam Date: 03/08/2019 0010 FAX #: Reason: VAGINAL BLEEDING/PELVIC PAIN EXAMS: CPT CODE: [id number] US PREG 1ST T RIMTR 30391 ULTRASOUND 1ST TRIMESTER DUPLEX PELVIS LIMITED ULTRASOUND TRANSVAGINAL Dictation Location: N13 CLINICAL HISTORY: with abdominal pain, history of molar COMPARISON: None for the current TECHNIQUE: Ultrasound of the pelvis was obtained using abdominal and transvaginal technique. Real-time grayscale, color and spectral Doppler imaging was performed. FIND INGS: The uterus measures 12.09 x 7.09 x 7.76 cm. There is an ear ly IUP present with average gestational sac size of 0.96 cm correlating to gestational age of 5 weeks 4 days. A pole is not demonstrated. A small 0.16 cm yolk sac is seen within the gestational sac. There is no subchorionic hemorrhage. Right ovary measures 3.77 x 2.13 x 2. 55 cm. Left ovary measures 3.28 x 1.64 x 2.21 cm. Both ovaries are lida l in size for the patient's age without suspicious masses or torsion. Norm al arterial inflow and venous outflow of each ovary was demonstrated using spectral Doppler. No evidence of free fluid in the cul-de-sac. No separate pelvic mass is demonstrated to suggest a rare concurrent ectopic . IMPRESSION: Early IUP of eulalio roximately 5 weeks 4 days. The small yolk sac is seen. pole not yet seen. No evidence of a rare concurrent ectopic . at 0034 Reported and signed by: Tish Tamayo M.D. PAGE 1 Signed Report (CONTINUED) Name: JIMENEZ ROSENBAUM [facility] : 1990 Age/S: 28 / F [address] [facility] Unit #: [id number] [place] [address] Phys: Judah Aguilera NP Acct: [id number] Dis Date: Status: REG ER PHONE #: [phone] Exam D ate: 03/08/2019 0010 FAX #: [phone] Reason: VAGIN AL BLEEDING/PELVIC PAIN EXAMS: CPT CODE: [id number] US PREG 1ST TRIMTR 18175 <Continued> CC: Judah Aguilera NP Technologist: Sylvia Mcknight [facility] Date/Time: 03/09/2019 (0034) Dacia Orig Print D/T: S: 03/09/2019 (0038) Probe: PAGE 2 Signed Report - US PREG UT [id number] 00:34:00 Name: JIMENEZ ROSENBAUM 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 Real-time grayscale, color and spectral Doppler imaging was performed. FIND INGS: The uterus measures 12.09 x 7.09 x 7.76 cm. There is an ear ly IUP present with average gestational sac size of 0.96 cm correlating to gestational age of 5 weeks 4 days. A pole is not demonstrated. A small 0.16 cm yolk sac is seen within the gestational sac. There is no subchorionic hemorrhage. Right ovary measures 3.77 x 2.13 x 2. 55 cm. Left ovary measures 3.28 x 1.64 x 2.21 cm. Both ovaries are lida l in size for the patient's age without suspicious masses or torsion. Norm al arterial inflow and venous outflow of each ovary was demonstrated using spectral Doppler. No evidence of free fluid in the cul-de-sac. No separate pelvic mass is demonstrated to suggest a rare concurrent ectopic . IMPRESSION: Early IUP of eulalio roximately 5 weeks 4 days. The small yolk sac is seen. pole not yet seen. No evidence of a rare concurrent ectopic . at 0034 Reported and signed by: Tish Tamayo M.D. PAGE 1 Signed Report (CONTINUED) Name: JIMENEZ ROSENBAUM [facility] : 1990 Age/S: 28 / F [address] Unit #: [id number] Loc: [place] [address] Phys: Judah Aguilera NP Acct: [id number] Dis Date: Status: REG ER PHONE #: [phone] Exam D ate: 03/08/2019 0010 FAX #: [phone] Reason: PELVI C PAIN EXAMS: CPT CODE: [id number] US PREG UT TRANSVAGINAL 10418 <Continued> CC: Judah Aguilera NP Technologist: Sylvia Mcknight [facility] Date/Time: 03/09/2019 (0034) [email or web address] Orig Print D/T: S: 03/09/2019 (0038) Probe: [id number] PAGE 2 Signed Report - DUP AB/PEL/SC [id number] 00:34:00 Name: JIMENEZ ROSENBAUM [facility] : 1990 Age/S: 28 / F [address] Unit #: [id number] Loc: [place] [address] Phys: Aarti Aguilera NP Acct: [id number] Di s Date: Status: REG ER PHONE #: Exam Date: 03/08/2019 0010 FAX #: Reason: PELVIC PAIN EXAMS: CPT CODE: [id number] DUP AB/PEL/SC COMP 71977 ULTRASOUND 1ST TRIMESTER DUPLEX PELVIS LIMITED ULTRASOUND TRANSVAGINAL Dictation Location: N13 CLINICAL HISTORY: with abdominal pain, history of molar COMPARISON: None for the current TECHNIQUE: Ultrasound of the pelvis was obtained using abdominal and transvaginal technique. Real-time grayscale, color and spectral Doppler imaging was performed. FIND INGS: The uterus measures 12.09 x 7.09 x 7.76 cm. There is an ear ly IUP present with average gestational sac size of 0.96 cm correlating to gestational age of 5 weeks 4 days. A pole is not demonstrated. A small 0.16 cm yolk sac is seen within the gestational sac. There is no subchorionic hemorrhage. Right ovary measures 3.77 x 2.13 x 2. 55 cm. Left ovary measures 3.28 x 1.64 x 2.21 cm. Both ovaries are lida l in size for the patient's age without suspicious masses or torsion. Norm al arterial inflow and venous outflow of each ovary was demonstrated using spectral Doppler. No evidence of free fluid in the cul-de-sac. No separate pelvic mass is demonstrated to suggest a rare concurrent ectopic . IMPRESSION: Early IUP of eulalio roximately 5 weeks 4 days. The small yolk sac is seen. pole not yet seen. No evidence of a rare concurrent ectopic . at 0034 Reported and signed by: Tish Tamayo M.D. PAGE 1 Signed Report (CONTINUED) Name: JIMENEZ ROSENBAUM [facility] : 1990 Age/S: 28 / F [address] [facility] Unit #: [id number] Loc: [place] [address] Phys: Judah Aguilera NP Acct: [id number] Dis Date: Status: REG ER PHONE #: [phone] Exam D ate: 03/08/2019 0010 FAX #: [phone] Reason: PELVI C PAIN EXAMS: CPT CODE: [id number] DUP AB/PEL/SC COMP 19407 <Continued> CC: Judah Aguilera NP Technologist: Sylvia Mcknight [facility] Date/Time: 03/09/2019 (003) [email or web address] Orig Print D/T: S: 03/09/2019 (0038) Probe: PAGE 2 Signed Report BASIC METABOLIC [id number] 00:17:00* Test Item Value Reference Range Interpretation Comments SODIUM (test code = NA) 138 mmol/L 136-145 N POTASSIUM (test code = K) 3.4 mmol/L 3.5-5.1 L CHLORIDE (test code = CL) 106.0 mmol/L 98-107 N CARBON DIOXIDE (test code = CO2) 23.0 mmol/L 21-32 N ANION GAP (test code = GAP) 12.4 10-20 N GLUCOSE (test code = GLU) 91 mg/dL 74-106 N BLOOD UREA NITROGEN (test code = BUN) 7 mg/dL 7-18 N GLOMERULAR FILTRATION RATE (test code = GFR) > 60 mL/min >=60 Estimated GFR by using Modified MDRD formula.Chronic kidney disease is defined as either kidney damageor GFR <60 mL/min/1.73 m2 for >3 months. CREATININE (test code = CREAT) 0.50 mg/dL 0.55-1.02 L Note change in reference range due to change in reagent. BUN/CREATININE RATIO (test code = BUN/CREA) 14.9 10-20 N CALCIUM (test code = CA) 9.1 mg/dL 8.5-10.1 N HCG SERUM [id number] 00:17:00* Test Item Value Reference Range Interpretation Comments HCG SERUM BETA (test code = HCG) 59888.0 mIU/mL 0-3 H Interfering substances present in the serum of somepatients may cause a false-positive result in this assay.Questionable elevations in serum hCG should be confirmedwith a urine hCG. Suspected Trophoblastic Neoplasms shouldnot be diagnosed based on serun hCG/beta hCG alone. Theymust be confirmed by clinical history and tissue diagnosis.INTERPRETATION:B-HCG LEVELS <5 SHOULD BE CONSIDERED "NEGATIVE." *WHEN BODERLINE RESULTS ARE ENCOUNTERED,PATIENT SAMPLESSHOULD BE REDRAWN 48 HOURS. 0-1 WEEKS AFTER CONCEPTION 5-50 MIU/ML1-2 WEEKS AFTER CONCEPTION 50-500 MIU/ML2-3 WEEKS AFTER CONCEPTION 100 -5,000 MIU/ML3-4 WEEKS AFTER CONCEPTION 500-10,000 MIU/ML4-5 WEEKS AFTER CONCEPTION 1000 -50,000 MIU/ML5-6 WEEKS AFTER CONCEPTION 10,000-100,000 MIU/ML6-8 WEEKS AFTER CONCEPTION 15,000- 200,000 MIU/ML2-3 MONTHS AFTER CONCEPTION 10,000-100,000 MIU/ML CBC W/O [id number] 23:56:00* Test Item Value Reference Range Interpretation Comments WHITE BLOOD CELL (test code = WBC) 8.3 K/mm3 4.5-12.5 N RED BLOOD CELL (test code = RBC) 4.08 mill/mm3 3.7-5.2 N HEMOGLOBIN (test code = HGB) 11.3 gram/dL 11.5-15.5 L HEMATOCRIT (test code = HCT) 34.9 % 36.0-46.0 L MEAN CELL VOLUME (test code = MCV) 85.5 fL 80-98 N MEAN CELL HGB (test code = MCH) 27.7 picogram 27.0-33.0 N MEAN CELL HGB CONCETRATION (test code = MCHC) 32.4 gram/dL 33.0-36. 0 L RED CELL DISTRIBUTION WIDTH (test code = RDW) 16.8 % 11.6-16. 2 H PLATELET COUNT (test code = PLT) 296 K/mm3 150-450 N MEAN PLATELET VOLUME (test code = MPV) 10.7 fL 6.7-11.0 N BASIC METABOLIC [id number] 23:53:00* Test Item Value Reference Range Interpretation Comments SODIUM (test code = NA) 138 mmol/L 136-145 N POTASSIUM (test code = K) 3.4 mmol/L 3.5-5.1 L CHLORIDE (test code = CL) 106.0 mmol/L 98-107 N CARBON DIOXIDE (test code = CO2) mmol/L 21-32 ANION GAP (test code = GAP) 10-20 GLUCOSE (test code = GLU) mg/dL 74-106 BLOOD UREA NITROGEN (test code = BUN) mg/dL 7-18 GLOMERULAR FILTRATION RATE (test code = GFR) mL/min >=60 CREATININE (test code = CREAT) mg/dL 0.55-1.02 BUN/CREATININE RATIO (test code = BUN/CREA) 10-20 CALCIUM (test code = CA) mg/dL 8.5-10.1 HCG SERUM [id number] 23:53:00* Test Item Value Reference Range Interpretation Comments HCG SERUM BETA (test code = HCG) mIU/mL 0-3 URINALYSIS [id number] 19:35:00* Test Item Value Reference Range Interpretation Comments UA COLOR (test code = COLU) STRAW YELLOW UA APPEARANCE (test code = APPU) CLEAR CLEAR UA GLUCOSE DIPSTICK (test code = DGLUU) NORMAL mg/dL NEGATIVE UA BILIRUBIN DIPSTICK (test code = BILU) NEGATIVE mg/dL NEGATIVE UA KETONE DIPSTICK (test code = KETU) neg mg/dL NEGATIVE UA SPECIFIC GRAVITY (test code = SGU) 1.005 1.001-1.035 UA BLOOD DIPSTICK (test code = SHAWNA) neg Rajesh/uL NEGATIVE UA PH DIPSTICK (test code = MALCOLM) 7.0 5.0-8.0 UA PROTEIN DIPSTICK (test code = PROU) neg mg/dL Neg-15 UA UROBILINIOGEN DIPSTICK (test code = URO) norm mg/dL 0.0-0.2 UA NITRITE DIPSTICK (test code = PETER) NEGATIVE NEGATIVE UA LEUKOCYTE ESTERASE DIPSTICK (test code = LEUU) 100/uL (2+) uL NE GATIVE A UA WBC (test code = WBCU) 0-5 per HPF 0-5 IN SOME URINARY TRACT INFECTIONS THERE MAY NOT BE ENOUGHWBCs IN THE URINE TO TRIGGER AN AUTOMATIC (REFLEX) URINECULTURE. A SEPERATE ORDER FOR URINE CULTURE IS RECOMMENDEDIF THERE IS STRONG SUPPORT FOR A URINARY TRACT INFECTIONCLINICALLY. UA RBC (test code = RBCU) NONE SEEN per HPF 0-5 UA EPITHELIAL CELLS (test code = EPIU) Few (2-5/hpf) per HPF Few UA BACTERIA (test code = BACU) FEW per HPF NONE Urine Source? Clean CatchUR HCG [id number] 19:35:00* Test Item Value Reference Range Interpretation Comments UR HCG QUAL (test code = HCGQLU) NEGATIVE This HCGQL test is NOT applicable for MALE patients.Check with nurse about probable order error.If Tumor Marker Test needed, nurse should order test "HCGTU"(Test #[id number]) Urine Source? Clean CatchURINALYSIS [id number] 19:16:00* Test Item Value Reference Range Interpretation Comments UA COLOR (test code = COLU) STRAW YELLOW UA APPEARANCE (test code = APPU) CLEAR CLEAR UA GLUCOSE DIPSTICK (test code = DGLUU) NORMAL mg/dL NEGATIVE UA BILIRUBIN DIPSTICK (test code = BILU) NEGATIVE mg/dL NEGATIVE UA KETONE DIPSTICK (test code = KETU) neg mg/dL NEGATIVE UA SPECIFIC GRAVITY (test code = SGU) 1.005 1.001-1.035 UA BLOOD DIPSTICK (test code = SHAWNA) neg Rajesh/uL NEGATIVE UA PH DIPSTICK (test code = MALCOLM) 7.0 5.0-8.0 UA PROTEIN DIPSTICK (test code = PROU) neg mg/dL Neg-15 UA UROBILINIOGEN DIPSTICK (test code = URO) norm mg/dL 0.0-0.2 UA NITRITE DIPSTICK (test code = PETER) NEGATIVE NEGATIVE UA LEUKOCYTE ESTERASE DIPSTICK (test code = LEUU) 100/uL (2+) uL NE GATIVE A UA WBC (test code = WBCU) per HPF 0-5 Urine Source? Clean CatchUR HCG [id number] 19:16:00* Test Item Value Reference Range Interpretation Comments UR HCG QUAL (test code = HCGQLU) Urine Source? Clean Catch
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
--- NOTE | 2020-01-02 21:43 | Diagnostic Imaging Report ---
X-ray left elbow 3 views HISTORY: Pain. COMPARISON: None available. FINDINGS: Bones: No acute displaced fracture. Osseous alignment is within normal limits. Joints: The joint spaces are well-maintained. Soft tissues: Soft tissue swelling about the elbow. IMPRESSION: No acute radiographic osseous abnormality. Soft tissue swelling about the elbow. Signed by: Jones Benz DO on 01/02/2020 9:39 PM
[2020-01-02 21:55] VITALS: BP 117/79
== END 2020-01-02 22:19 | disposition home or self-care (01) ==
LOC: ER 21:05
DX: S00.83XA Contusion of other part of head, initial encounter (principal); S50.02XA Contusion of left elbow, initial encounter; R42 Dizziness and giddiness; Y04.2XXA Assault by strike against or bumped into by another person, initial encounter; Y92.008 Other place in unspecified non-institutional (private) residence as the place of occurrence of the external cause
CPT/HCPCS: 70450; 99283